=== PATIENT | male | born 2000 | race Caucasian/White ===

== ENCOUNTER 2025-04-26 19:19 | Emergency (ER) | payer SELFPAY ==
[~2025-04-26] VITALS: Ht 193 cm; Wt 86.4 kg
[2025-04-26 19:27] VITALS: BP 152/98; PULSE 89; RESP 16; TEMP 97.8; O2SAT 98
== END 2025-04-26 21:09 | disposition left against medical advice (07) ==
LOC: ER 19:20
DX: H57.12 Ocular pain, left eye (principal)
CPT/HCPCS: 99281